=== PATIENT | male | born 1995 | race Caucasian/White ===

== ENCOUNTER 2018-08-21 14:18 | Inpatient (IN) | payer BC, OTHER ==
[~2018-08-21] VITALS: Ht 190.5 cm; Wt 99.3 kg
[2018-08-21] MEDS ORDERED: ONDA4TAB11 PO (20:40)
[2018-08-21] MEDS ORDERED: CITA20TA16 PO (20:41)
[2018-08-21] MEDS ORDERED: TRAZ-214 PO (20:41)
[2018-08-21] MEDS ORDERED: DIAZEPAM 5 MG TABLET PO PRN (20:45)
[2018-08-21] MEDS ORDERED: MAG HYDROX/AL HYDROX/SIMETH 30 ML LIQUID UDC PO PRN (20:45)
[2018-08-21] MEDS ORDERED: ONDANSETRON 4 MG/2 ML VIAL IM PRN (20:45)
[2018-08-21] MEDS ORDERED: MIRALAX 17 GM POWD.PACK PO PRN (20:45)
[2018-08-21] MEDS ORDERED: MAGNESIUM HYDROXIDE 30 ML LIQUID UDC PO PRN (20:45)
[2018-08-21] MEDS ORDERED: LOPERAMIDE HCL 2 MG CAPSULE PO PRN ×2 (20:45)
[2018-08-21] MEDS ORDERED: diphenhydrAMINE 50 MG CAPSULE PO PRN (20:45)
[2018-08-21] MEDS ORDERED: SRC OPIOID WITHDRAWAL ADMITTING PROTOCOL XX PRN (20:45)
[2018-08-21] MEDS ORDERED: LORAZEPAM 2 MG/1 ML VIAL IM PRN (20:45)
[2018-08-21] MEDS ORDERED: SRC BENZO WITHDRAWAL ADMITTING PROTOCOL XX PRN (20:45)
[2018-08-21] MEDS ORDERED: DIAZEPAM 10 MG TABLET PO PRN ×2 (20:45)
[2018-08-21 21:20] LABS: *AMPHETAMINE, URINE NEGATIVE (NEGATIVE); *BARBITURATE, URINE NEGATIVE (NEGATIVE); *CANNABINOID, URINE POSITIVE (NEGATIVE); *COCCAINE, URINE NEGATIVE (NEGATIVE); *OPIATE, URINE POSITIVE (NEGATIVE); *PHENCYCLIDINE SCREEN,URINE NEGATIVE (NEGATIVE)
[2018-08-21] MEDS: CLONIDINE HCL 0.1 MG TABLET PO PRN (21:55)
[2018-08-21 22:20] LABS: BASOPHILS % (AUTO) 0.2 % (0.0-2.0); EOSINOPHILS # (AUTO) 0.3 K/uL (0.0-0.7); EOSINOPHILS % (AUTO) 2.8 % (0.0-7.0); HEMOGLOBIN 15.1 g/dL (12.5-16.3); LYMPHOCYTES # (AUTO) 2.8 K/uL (20.0-40.0); LYMPHOCYTES % (AUTO) 29.8 % (20.5-51.5); MEAN CORPUSCULAR HEMOGLOBIN 29.8 uug (23.8-33.4); MEAN CORPUSCULAR HGB CONC 34 g/dL (32.5-36.3); MEAN CORPUSCULAR VOLUME 86.5 fL (73.0-96.2); MONOCYTES # (AUTO) 1.4 K/uL (2.0-10.0); NEUTROPHILS # (AUTO) 4.9 K/uL (1.8-8.9); NEUTROPHILS % (AUTO) 52.2 % (38.5-71.5); PLATELET COUNT (AUTO) 185 K/uL (152-348); RED BLOOD CELL COUNT(AUTO) 5.08 MIL/uL (4.06-5.63); WHITE BLOOD COUNT (AUTO) 9.4 K/uL (3.6-10.2)
[2018-08-21 22:29] LABS: ALANINE AMINOTRANSFERASE 82 U/L (16-63); ALKALINE PHOSPHATASE 69 U/L (50-136); ASPARTATE AMINOTRANSFERASE 31 U/L (15-37); BILIRUBIN,TOTAL 0.7 mg/dL (0.2-1.0); CARBON DIOXIDE 29 mmol/L (21-32); CHLORIDE 101 mmol/L (98-107); CREATININE 1.1 mg/dL (0.6-1.3); GLUCOSE 74 mg/dL (74-106); MAGNESIUM 1.7 mg/dL (1.8-2.4); POTASSIUM 3.7 mmol/L (3.5-5.1); TOTAL PROTEIN, SERUM 7.1 g/dL (6.4-8.2); UREA NITROGEN, BLOOD 9 mg/dL (7-18)
[2018-08-21 22:38] LABS: THYROID STIMULATING HORMONE 1.029 mIU/mL (0.358-3.740)
[2018-08-21 22:40] LABS: ETHANOL < 3 MG/DL (0-0)
[2018-08-22] VITALS: BP 126/72
[2018-08-22 00:34] LABS: LYMPHOCYTES % (MANUAL) 36 % (20-40); MONOCYTES % (MANUAL) 13 % (2-10); NEUTROPHILS % (MANUAL) 51 % (42-75)
[2018-08-22 04:00] VITALS: BP 102/58
[2018-08-22 08:04] VITALS: BP 102/62
[2018-08-22] MEDS ORDERED: MAGNESIUM OXIDE 400 MG TABLET PO ONE (09:00)
[2018-08-22] MEDS ORDERED: TUBERCULIN,PURIF.PROT.DERIV. 5 TU/0.1 ML TEST ID ONE (09:00)
[2018-08-22] MEDS: MULTIVITAMINS,THERAPEUTIC TABLET PO SCH (09:43)
[2018-08-22] MEDS: ONDANSETRON ODT 4 MG TAB.RAPDIS SL PRN (11:45)
[2018-08-22] MEDS: ACETAMINOPHEN 325 MG TABLET PO PRN (11:45)
[2018-08-22] MEDS: IBUPROFEN 600 MG TABLET PO PRN ×2 (11:45→21:22)
[2018-08-22] MEDS: METHOCARBAMOL 750 MG TABLET PO PRN ×2 (11:45→21:22)
[2018-08-22] MEDS ORDERED: BUPRENORPHINE HCL 2 MG TAB.SUBL SL ONE (12:00)
[2018-08-22 12:22] VITALS: BP 113/62
[2018-08-22] MEDS ORDERED: 5 DAY TAPER BUPRENORPHINE -SERENITY PROTOCOL SL PRN (13:30)
[2018-08-22] MEDS ORDERED: 5 DAY TAPER VALIUM-SERENITY PROTOCOL PO PRN (13:30)
[2018-08-22] MEDS: HYDROXYZINE PAMOATE 25 MG CAPSULE PO PRN ×2 (15:50→21:22)
[2018-08-22] MEDS: CLONIDINE HCL 0.1 MG TABLET PO PRN (15:50)
[2018-08-22 16:06] VITALS: BP 133/73
[2018-08-22] MEDS: BUPRENORPHINE HCL 2 MG TAB.SUBL SL SCH ×2 (16:08→21:21)
[2018-08-22] MEDS: DIAZEPAM 10 MG TABLET PO SCH ×2 (16:08→21:22)
[2018-08-22 20:00] VITALS: BP 99/65
[2018-08-22] MEDS: TRAZODONE 100 MG TABLET PO PRN (21:22)
[2018-08-23] VITALS: BP 129/70
[2018-08-23 07:44] LABS: CREATININE 0.9 mg/dL (0.6-1.3); MAGNESIUM 2.1 mg/dL (1.8-2.4); POTASSIUM 4.1 mmol/L (3.5-5.1)
[2018-08-23 08:15] VITALS: BP 115/62
[2018-08-23] MEDS: BUPRENORPHINE HCL 2 MG TAB.SUBL SL SCH ×3 (08:37→20:26)
[2018-08-23] MEDS: DIAZEPAM 5 MG TABLET PO SCH ×4 (08:37→20:26)
[2018-08-23] MEDS: MULTIVITAMINS,THERAPEUTIC TABLET PO SCH (08:37)
[2018-08-23 12:29] VITALS: BP 141/86
[2018-08-23 16:45] VITALS: BP 121/61
[2018-08-23 20:00] VITALS: BP 152/92
[2018-08-23] MEDS: ONDANSETRON ODT 4 MG TAB.RAPDIS SL PRN (20:25)
[2018-08-23] MEDS: TRAZODONE 100 MG TABLET PO PRN (20:26)
[2018-08-24] MEDS ORDERED: CITA20TA16 PO (01:00)
[2018-08-24 01:23] VITALS: BP 137/93
[2018-08-24] MEDS: HYDROXYZINE PAMOATE 25 MG CAPSULE PO PRN (01:26)
[2018-08-24] MEDS: CLONIDINE HCL 0.1 MG TABLET PO PRN (01:26)
[2018-08-24] MEDS: METHOCARBAMOL 750 MG TABLET PO PRN ×2 (01:30→20:33)
[2018-08-24] MEDS: IBUPROFEN 600 MG TABLET PO PRN (01:30)
[2018-08-24 06:06] LABS: HEPATITIS B SURFACE AG Negative (Negative)
[2018-08-24 08:00] VITALS: BP 89/43
[2018-08-24] MEDS ORDERED: BUPRENORPHINE HCL 2 MG TAB.SUBL SL SCH (09:00)
[2018-08-24] MEDS: DIAZEPAM 5 MG TABLET PO SCH ×3 (10:12→20:32)
[2018-08-24] MEDS: MULTIVITAMINS,THERAPEUTIC TABLET PO SCH (10:13)
[2018-08-24 12:00] VITALS: BP 140/80
[2018-08-24] MEDS: BUPRENORPHINE HCL 2 MG TAB.SUBL SL SCH ×2 (14:24→20:33)
[2018-08-24] MEDS: CITALOPRAM 20 MG TABLET PO SCH (14:24)
[2018-08-24 16:30] VITALS: BP 134/81
[2018-08-24 20:00] VITALS: BP 142/86
[2018-08-24] MEDS: TRAZODONE 100 MG TABLET PO PRN (20:33)
[2018-08-25] VITALS: BP 127/78
[2018-08-25 08:08] VITALS: BP 98/50
[2018-08-25] MEDS: BUPRENORPHINE HCL 2 MG TAB.SUBL SL SCH ×3 (09:13→20:25)
[2018-08-25] MEDS: DIAZEPAM 5 MG TABLET PO SCH ×2 (09:13→20:25)
[2018-08-25] MEDS: CITALOPRAM 20 MG TABLET PO SCH (09:13)
[2018-08-25] MEDS: MULTIVITAMINS,THERAPEUTIC TABLET PO SCH (09:13)
[2018-08-25 12:00] VITALS: BP 145/85
[2018-08-25] MEDS: BACLOFEN 20 MG TABLET PO PRN (14:41)
[2018-08-25] MEDS: CLONIDINE HCL 0.1 MG TABLET PO PRN (14:41)
[2018-08-25 16:00] VITALS: BP 142/90
[2018-08-25 20:11] VITALS: BP 131/80
[2018-08-25] MEDS: TRAZODONE 100 MG TABLET PO PRN (20:25)
[2018-08-26 08:00] VITALS: BP 113/87
[2018-08-26] MEDS ORDERED: DIAZEPAM 5 MG TABLET PO SCH (09:00)
[2018-08-26] MEDS ORDERED: BUPRENORPHINE HCL 2 MG TAB.SUBL SL SCH (09:00)
[2018-08-26] MEDS: CITALOPRAM 20 MG TABLET PO SCH (09:52)
[2018-08-26] MEDS: MULTIVITAMINS,THERAPEUTIC TABLET PO SCH (09:52)
[2018-08-26] MEDS: BACLOFEN 20 MG TABLET PO PRN (09:52)
[2018-08-26 13:00] VITALS: BP 141/91
[2018-08-26] MEDS ORDERED: CITA20TA16 PO (14:25)
[2018-08-26] MEDS ORDERED: CLON0.1T14 PO (14:25)
[2018-08-26] MEDS ORDERED: TRAZ-214 PO (14:25)
[2018-08-26 18:04] VITALS: BP 148/91
[2018-08-26 20:00] VITALS: BP 158/89
[2018-08-26] MEDS: IBUPROFEN 600 MG TABLET PO PRN (20:53)
[2018-08-26] MEDS: TRAZODONE 100 MG TABLET PO PRN (20:53)
[2018-08-26] MEDS: ACETAMINOPHEN 325 MG TABLET PO PRN (20:53)
[2018-08-26] MEDS: CLONIDINE HCL 0.1 MG TABLET PO PRN (20:53)
[2018-08-27 08:23] VITALS: BP 138/84
[2018-08-27] MEDS: MULTIVITAMINS,THERAPEUTIC TABLET PO SCH (08:54)
[2018-08-27] MEDS: CITALOPRAM 20 MG TABLET PO SCH (08:54)
== END 2018-08-27 09:42 | disposition other institution (70) | DRG 895 ==
LOC: SRC 18:51
PROVIDERS: ADMIT Family Medicine Addiction Medicine; ATTEND Family Medicine Addiction Medicine
PROC: HZ2ZZZZ Detoxification Services for Substance Abuse Treatment (ICD-10-PCS; principal; 2018-08-21)
PROC: HZ41ZZZ Group Counseling for Substance Abuse Treatment, Behavioral (ICD-10-PCS; 2018-08-23)
PROC: HZ31ZZZ Individual Counseling for Substance Abuse Treatment, Behavioral (ICD-10-PCS; 2018-08-24)
DX: F11.23 Opioid dependence with withdrawal (principal); F13.230 Sedative, hypnotic or anxiolytic dependence with withdrawal, uncomplicated; E83.42 Hypomagnesemia; Z81.3 Family history of other psychoactive substance abuse and dependence; F90.9 Attention-deficit hyperactivity disorder, unspecified type; F41.0 Panic disorder [episodic paroxysmal anxiety]; F31.9 Bipolar disorder, unspecified; F17.210 Nicotine dependence, cigarettes, uncomplicated
CPT/HCPCS: 36415; 70030-TC; 80307; 80346; 80349; 80361; 83735; 84443; 85025; 86580; 86592; 86705; 86803; 87340; 87806; 93005; A4663; G0480; Q0162